=== PATIENT | male | born 1950 | race Caucasian/White ===

== ENCOUNTER 2020-01-26 11:36 | Observation (INO) | payer MEDICARE, SELFPAY ==
[2020-01-26 11:45] VITALS: BP 132/79; PULSE 101; RESP 18; TEMP 37.1; O2SAT 98
--- NOTE | 2020-01-26 12:11 | ED.GENADULT ---
HPI - General Adult General Chief complaint: Wound/Laceration <TAWNYA Jha Last Filed: 01/26/20 13:21> Stated complaint: FINGER INFECTION <TAWNYA Jha Last Filed: 01/26/20 13:21> Time Seen by Provider: 01/26/20 11:59 <TAWNYA Jha Last Filed: 01/26/20 13:21> Source: patient <TAWNYA Jha Last Filed: 01/26/20 13:21> Mode of arrival: ambulatory <TAWNYA Jha Last Filed: 01/26/20 13:21> Limitations: no limitations <TAWNYA Jha Last Filed: 01/26/20 13:21> History of Present Illness HPI narrative: Patient is a 69-year-old male who presents to emergency department for evaluation of swelling and pain involving the right middle finger patient cut the dorsal surface of the finger with a metal can 3 days ago and now the digit has become progressively more swollen draining purulent drainage with redness extending up into the hand. Patient notes aching pain worse with activity and movement. Patient notes his tetanus to be up-to-date patient presents per private vehicle has not been seen for this complaint nor is he taken anything for his symptoms <TAWNYA Jha Last Filed: 01/26/20 13:21> Related Data Home medications: Home Medications Medication Instructions Recorded Confirmed tamsulosin 0.4 mg capsule 0.4 mg PO DAILY 09/18/19 01/26/20 trazodone 300 mg PO HS 01/26/20 01/26/20 <TAWNYA Jha Last Filed: 01/26/20 13:21> Allergies/adverse reactions: Allergies Allergy/AdvReac Type Severity Reaction Status Date / Time No Known Allergies Allergy Mild Unverified 05/06/18 10:53 <TAWNYA Jha Last Filed: 01/26/20 13:21> Review of Systems Review of Systems: All systems reviewed & are unremarkable except as noted in HPI and below <TAWNYA Jha Last Filed: 01/26/20 13:21> [facility] Past Medical History Medical History: Medical History (Updated 01/26/20 @ 16:08 by Nikki Tejeda PA-C) Anxiety and depression Asbestosis Benign prostatic hyperplasia Colon polyps (~04/2018) Extrapyramidal dysarthria Hyperlipidemia Knee pain, chronic Osteoarthritis Paroxysmal atrial fibrillation (~04/2018) Type 2 diabetes mellitus <Lawrence Faye PA-C - Last Filed: 01/26/20 13:21> Surgical History Surgical History: Surgical History (Updated 01/26/20 @ 15:53 by Nikki Tejeda PA-C) History of lung surgery History of surgery on right wrist <Lawrence Faye PA-C - Last Filed: 01/26/20 13:21> Family History Family History: Family History (Updated 01/26/20 @ 15:54 by Nikki Tejeda PA-C) Mother Depression Other Diabetes mellitus Hypertension <Lawrence Faye PA-C - Last Filed: 01/26/20 13:21> Social History Social History: Social History (Updated 01/26/20 @ 15:55 by Nikki Tejeda PA-C) Social History: The patient is and lives in [place] with his . He is retired from [employer]. He has a 25 pack year smoking history and quit 1995. He denies alcohol and drug abuse. He designates his , Iris, as his surrogate decision maker and he wishes to be a full code Smoking packs per day: 1 Smoking cigarettes per day: 20.0 Years smoked: 25 Smoking pack-years: 25.00 Substance use: never Spiritual care concerns: No <Lawrence Faye PA-C - Last Filed: 01/26/20 13:21> Exam Narrative: Exam Narrative: GENERAL: Well-appearing, well-nourished, and in no acute distress. HEAD: Normocephalic, atraumatic. EYES: PERRLA and EOMI. ENT: Nares clear, no rhinorrhea or epistaxis. Mucous membranes moist. EXTREMITIES: Normal range of motion. No edema. SKIN: Warm, dry, no rash. Circumferential swelling and tenderness of the right ring finger with laceration over the PIP joint with tenderness to palpation and erythema with the swelling extending up into the dorsal surface of the right hand NEUR
[2020-01-26 12:38] LABS: Basophils Percent Auto 1.8 % (0.2-1.2); Eosinophils Absolute Auto 0.1 K/mm3 (0-0.3); Eosinophils Percent Auto 6.5 % (0-4.4); Hematocrit 34.6 % (42.0-52.0); Hemoglobin 12.3 g/dL (14.0-18.0); Immature Granulocyte Absolute 0.01 K/mm3 (0.00-0.031); Immature Granulocyte Percent A 0.6 % (0-0.5); Lymphocytes Percent Auto 35.7 % (18.3-44.2); Mean Corpuscular HGB Conc 35.5 g/dl (32-36); Mean Corpuscular Hemoglobin 34.6 pg (26-34); Mean Corpuscular Volume 97.5 fl (80-100); Mean Platelet Volume 9.8 fl (7.4-10.4); Monocytes Absolute Auto 0.5 K/mm3 (0.1-0.6); Monocytes Percent Auto 29.8 % (2.6-8.5); Neutrophils Absolute Auto 0.4 K/mm3 (1.3-6.7); Neutrophils Percent Auto 25.6 % (45.5-73.1); Platelet Count Result 184 k/mm3 (150-375); Red Blood Count 3.55 M/mm3 (4.6-6.20); Red Cell Distribution Width 12.5 % (11.5-14.5)
[2020-01-26 12:40] LABS: White Blood Count 1.7 K/mm3 (4.5-10.0)
[2020-01-26] MEDS: ceFAZolin 2 GM/D5W 50 ML 2 GM/50 ML BAG IVPB (12:44)
[2020-01-26] MEDS: SODIUM CHLORIDE 0.9% IV 1,000 ML 999 ML IV CONT (12:45)
[2020-01-26 12:50] LABS: Alanine Aminotransferase 12 U/L (4-50); Albumin Level 4.4 g/dL (3.5-5.1); Alkaline Phosphatase 75 U/L (38-126); Aspartate Amino Transferase 21 U/L (17-59); Bilirubin,Total 1.5 mg/dL (0.2-1.3); Blood Urea Nitrogen 12 mg/dL (9-20); Calcium 9.5 mg/dL (8.4-10.2); Carbon Dioxide 24 mmol/L (22-30); Chloride 101 mmol/L (98-107); Estimated CRCL calculation 63 ml/min; Estimated Glomerular Filt Rate 60; Glucose 207 mg/dL (75-110); Potassium 4.1 mmol/L (3.4-5.0); Sodium 133 mmol/L (137-145)
[2020-01-26 13:28] VITALS: BP 142/66; PULSE 88; RESP 16; O2SAT 98
[2020-01-26 15:00] VITALS: BP 133/81; PULSE 72; RESP 20; TEMP 36.8; O2SAT 100
[2020-01-26] MEDS: LACTATED RINGERS 1,000 ML 125 ML IV CONT (15:39)
--- NOTE | 2020-01-26 15:45 | PM.IMHP ---
H&P: HPI History of Present Illness Chief complaint: Right 3rd finger wound. Narrative: Peña Palmer is a 69-year-old male with type 2 diabetes mellitus, dyslipidemia, and paroxysmal atrial fibrillation on long-term anticoagulation who presented to the emergency department earlier today for evaluation of a right 3rd finger wound. Three days ago he cut his right 3rd finger on a freshly opened can of cat food. The wound was pretty shallow, and he cleaned it right away with soap and water and also applied peroxide and Neosporin. Over the past couple of days it has become progressively more edematous and erythematous, and it is now traveling up the dorsum of the right hand. This morning, the wound began draining yellowish fluid and thus he came in for evaluation. He does have a throbbing, aching discomfort in the finger, and it is worse with bending. He gives no significant alleviating factors. To this point he has been taking Tylenol for the discomfort without a whole lot of benefit. He has not had fever, chills, or sweats. He denies paresthesias, skin color, and temperature changes of that finger. He has not had nausea or vomiting. No history of MRSA. He is up-to-date on tetanus. Review of Systems Review of Systems: Narrative: Twelve systems were reviewed with pertinent positives and negatives as per HPI. No recent cold or flu symptoms. Denies recent travel and sick contacts. No cough or shortness of breath. He tells me that he sleeps poorly and is frequently tired throughout the day, but he blames that on getting up several times at night to urinate. He does have a history of BPH, but denies having any significant symptoms related to such. In fact, he thinks he urinates at night as he tends to drink a lot of fluids before bedtime. He does snore but denies PND and his has never noticed any apneic episodes. He denies falling asleep at in opportune times. He rarely has fleeting fluttering or discomfort in his left anterior chest that he believes is due to atrial fibrillation. His weight has remained stable, in fact he is maybe gained a few pounds. He is now back on metformin after he was previously able to control his diabetes with diet. It is also noted that his white blood cell count has been low for several years with neutropenia, but he has never been told of such. He has no known history of hematologic malignancy and denies easy bruising and bleeding. He denies lymphadenopathy. Except as documented, all other systems were reviewed and are negative. [facility] Past Medical History Medical History (Updated 01/26/20 @ 16:08 by Nikki Tejeda PA-C) Anxiety and depression Asbestosis Benign prostatic hyperplasia Colon polyps (~04/2018) Extrapyramidal dysarthria Hyperlipidemia Knee pain, chronic Osteoarthritis Paroxysmal atrial fibrillation (~04/2018) Type 2 diabetes mellitus Surgical History Surgical History (Updated 01/26/20 @ 19:44 by Nikki Tejeda PA-C) History of right knee joint replacement History of surgery on right wrist Family History Family History (Updated 01/26/20 @ 15:54 by Nikki Tejeda PA-C) Mother Depression Other Diabetes mellitus Hypertension Social History Social History (Updated 01/26/20 @ 15:55 by Nikki Tejeda PA-C) Social History: The patient is and lives in [place] with his . He is retired from [employer]. He has a 25 pack year smoking history and quit 1995. He denies alcohol and drug abuse. He designates his , Iris, as his surrogate decision maker and he wishes to be a full code Smoking packs per day: 1 Smoking cigarettes per day: 20.0 Years smoked: 25 Smoking pack-years: 25.00 Substance use: never Spiritual care concerns: No Meds Home Medications and Allergies Home Medications Medication Instructions Recorded Confirmed Type paroxetine HCl 20 mg tablet 20 mg PO DAILY #30 tablet 08/31/19 01/26/20 Rx atorvas
--- NOTE | 2020-01-26 15:51 | ADMGEN ---
This patient, Peña Palmer, was admitted to Medical Room 258-. Patient/family oriented to hospital policies and general routines including ID bracelet, bed and alarms, visiting hours, pain management, procedures, bathroom and other care routines, personal items, smoking policy, room service/diet, and visiting hours. Valuables list has been completed. Information on how to activate the Rapid Response Team has been discussed. Patient/Family are encouraged to report perceived risks to care and to ask questions if they do not understand what they are told or what they should do.
[2020-01-26 16:08] VITALS: BMI 34.4
[2020-01-26 16:46] LABS: Glucose Point of Care 190 (65-105)
--- NOTE | 2020-01-26 17:44 | WPDCN ---
HPI Data of Consult Date/Time: 01/26/20 17:44 Requesting Physician: Skinny Aguila MD Primary Care Provider: Barrera Tamayo DO Consult Narrative Narrative: Peña Palmer is a 69 year old male type 2 diabetic with PAF and history of lung surgery who presents on post injury day 4 with an infected right middle finger. He cut his finger over the dorsum of the proximal interphalangeal joint when he was wiping out food from a freshly opened cat food can. This would necessarily have been a shallow wound. It is coincidentally noted on his admission CBC that he is markedly leukopenic and has abnormal white cell indices. I examined him with the hospitalist. The laceration is approximately 1 cm in length. This had been opened and irrigated by the ER physician and pus had been noted.. The finger is locally red in the area of the dorsal proximal interphalangeal joint. Extension is intact, flexion causes pain. He has no signs of flexor septic tenosynovitis. He will be started on a couple of antibiotics in view of his diabetes and leukopenia. At this point I see no reason for surgical intervention. I would recommend elevation of his hand however. I will check in on him tomorrow and as long as he is here. It can be seen that he has had low white count on prior tests going back a number of years. Communication with his primary physician may be warranted regarding this. [facility] Past Medical History Medical History (Updated 01/26/20 @ 16:08 by Nikki Tejeda PA-C) Anxiety and depression Asbestosis Benign prostatic hyperplasia Colon polyps (~04/2018) Extrapyramidal dysarthria Hyperlipidemia Knee pain, chronic Osteoarthritis Paroxysmal atrial fibrillation (~04/2018) Type 2 diabetes mellitus Surgical History Surgical History (Updated 01/26/20 @ 15:53 by Nikki Tejeda PA-C) History of lung surgery History of surgery on right wrist Family History Family History (Updated 01/26/20 @ 15:54 by Nikki Tejeda PA-C) Mother Depression Other Diabetes mellitus Hypertension Social History Social History (Updated 01/26/20 @ 15:55 by Nikki Tejeda PA-C) Social History: The patient is and lives in [place] with his . He is retired from [employer]. He has a 25 pack year smoking history and quit 1995. He denies alcohol and drug abuse. He designates his , Iris, as his surrogate decision maker and he wishes to be a full code Smoking packs per day: 1 Smoking cigarettes per day: 20.0 Years smoked: 25 Smoking pack-years: 25.00 Substance use: never Spiritual care concerns: No Meds Home Medications and Allergies Home Medications Medication Instructions Recorded Confirmed Type paroxetine HCl 20 mg tablet 20 mg PO DAILY #30 tablet 08/31/19 01/26/20 Rx atorvastatin 20 mg tablet 20 mg PO DAILY #90 tablet 09/06/19 01/26/20 Rx tamsulosin 0.4 mg capsule 0.4 mg PO DAILY 09/18/19 01/26/20 History metformin 500 mg tablet,extended 500 mg PO DAILY #90 tablet 12/13/19 01/26/20 Rx release 24 hr rivaroxaban 20 mg tablet 20 mg PO DAILY #30 tablet 01/21/20 01/26/20 Rx trazodone 300 mg PO HS 01/26/20 01/26/20 History Allergies Allergy/AdvReac Type Severity Reaction Status Date / Time No Known Allergies Allergy Mild Unverified 05/06/18 10:53 Vital Signs Vital Signs - 24 hr 01/26/20 11:45 01/26/20 13:28 01/26/20 15:00 Temperature 37.1 C 36.8 C Pulse Rate 101 H 88 72 Respiratory Rate 18 16 20 Blood Pressure 132/79 142/66 H 133/81 Pulse Oximetry 98 98 100 Results Labs CBC & Chem 7: 01/26/20 12:25 01/26/20 12:25 Labs: Short CBC 01/26/20 Range/Units 12:25 WBC 1.7 L* (4.5-10.0) K/mm3 Hgb 12.3 L (14.0-18.0) g/dL Hct 34.6 L (42.0-52.0) % Plt Count 184 (150-375) k/mm3 BMP 01/26/20 12:25 Sodium 133 L Potassium 4.1 Chloride 101 Carbon Dioxide 24 BUN 12 Creatinine 1.20 Glucose 207 H
[2020-01-26] MEDS: RIVAROXABAN 20 MG TABLET PO (20:56)
[2020-01-26 21:31] VITALS: BP 133/86; PULSE 74; RESP 18; TEMP 36.3; O2SAT 98
[2020-01-27 00:07] LABS: Glucose Point of Care 151 (65-105)
[2020-01-27] MEDS: PAROXETINE 20 MG TABLET PO ×2 (00:46→20:47)
[2020-01-27 02:00] VITALS: BP 116/55; PULSE 78; RESP 14; TEMP 36.7; O2SAT 100
[2020-01-27 06:00] VITALS: BP 104/64; PULSE 83; RESP 14; TEMP 36.4; O2SAT 99
[2020-01-27 06:00] LABS: Basophils Percent Auto 2.3 % (0.2-1.2); Eosinophils Absolute Auto 0.2 K/mm3 (0-0.3); Eosinophils Percent Auto 13.7 % (0-4.4); Hematocrit 30.6 % (42.0-52.0); Hemoglobin 10.7 g/dL (14.0-18.0); Lymphocytes Absolute Auto 0.56 K/mm3 (0.9-3.2); Lymphocytes Percent Auto 42.7 % (18.3-44.2); Mean Corpuscular Hemoglobin 33.9 pg (26-34); Mean Corpuscular Volume 96.8 fl (80-100); Mean Platelet Volume 10.1 fl (7.4-10.4); Monocytes Absolute Auto 0.4 K/mm3 (0.1-0.6); Monocytes Percent Auto 32.1 % (2.6-8.5); Neutrophils Absolute Auto 0.1 K/mm3 (1.3-6.7); Neutrophils Percent Auto 9.2 % (45.5-73.1); Platelet Count Result 149 k/mm3 (150-375); Red Blood Count 3.16 M/mm3 (4.6-6.20); Red Cell Distribution Width 12.4 % (11.5-14.5)
[2020-01-27 06:10] LABS: Hemoglobin A1C 4.8 % (<5.7)
[2020-01-27 06:12] LABS: Potassium 3.9 mmol/L (3.4-5.0)
[2020-01-27 06:16] LABS: White Blood Count 1.3 K/mm3 (4.5-10.0)
[2020-01-27 06:26] LABS: Blood Urea Nitrogen 13 mg/dL (9-20); Calcium 8.7 mg/dL (8.4-10.2); Carbon Dioxide 26 mmol/L (22-30); Chloride 105 mmol/L (98-107); Estimated CRCL calculation 64 ml/min; Estimated Glomerular Filt Rate 60; Glucose 156 mg/dL (75-110); Sodium 137 mmol/L (137-145)
[2020-01-27] MEDS: ATORVASTATIN 20 MG TABLET PO (08:29)
[2020-01-27] MEDS: TAMSULOSIN HCL 0.4 MG CAPSULE PO (08:29)
[2020-01-27 08:36] LABS: Glucose Point of Care 161 (65-105)
[2020-01-27 10:00] VITALS: BP 119/68; PULSE 70; RESP 20; TEMP 36.1; O2SAT 99
--- NOTE | 2020-01-27 11:22 | WPDPN ---
Progress Note: A&P Additional Plan No worsening of finger infection. Seems less tender. No apparent pus. WBC remains a concern. Will order topical ointment to be applied with a Band aid. Exam Narrative: Exam Narrative: Area of dorsal PIP joint of right middle finger remains erythematous. Able to make a tightly clenched fist without significant pain. Tolerates local exam. Small superficial blister ruptured, contained clear fluid. No signs of flexor tendon infection. WBC 1.3 with severe neutropenia and other altered indices. Dr Epps has been aware of this trend over recent years, but pt not aware of a dignosis. Objective Data Vital Signs Vital Signs: Vital Signs - 24 hr 01/26/20 11:45 01/26/20 13:28 01/26/20 15:00 Temperature 37.1 C 36.8 C Pulse Rate 101 H 88 72 Respiratory Rate 18 16 20 Blood Pressure 132/79 142/66 H 133/81 Pulse Oximetry 98 98 100 01/26/20 21:31 01/27/20 02:00 01/27/20 06:00 Temperature 36.3 C L 36.7 C 36.4 C Pulse Rate 74 78 83 Respiratory Rate 18 14 14 Blood Pressure 133/86 116/55 L 104/64 Pulse Oximetry 98 100 99 01/27/20 10:00 Temperature 36.1 C L Pulse Rate 70 Respiratory Rate 20 Blood Pressure 119/68 Pulse Oximetry 99 Intake/Output Intake/Output: Intake & Output 01/24/20 01/25/20 01/26/20 01/27/20 23:59 23:59 23:59 23:59 Intake Total 1989 2239 Output Total 2699 Balance 1989 - Meds/Results Medications: Active Medications Generic Name Dose Route Start Last Admin Trade Name Freq PRN Reason Stop Dose Admin Acetaminophen 650 mg 01/26/20 19:34 Tylenol Tablet PO Q6H PRN Mild Pain (1-3) or Fever Hydrocodone Bitart/Acetaminophen 1 tab 01/26/20 19:34 01/27/20 05:41 [place] [employer] 5-325 Mg PO 1 tab Q6H PRN Administration Pain Rated 4-6 Atorvastatin Calcium 20 mg 01/27/20 09:00 01/27/20 08:29 Lipitor PO 20 mg DAILY LEONID Administration Dextrose 12.5 gm 01/26/20 19:54 Dextrose 50% Syringe IV PUSH PRN PRN Hypoglycemia Protocol Glucagon 1 mg 01/26/20 19:54 Glucagon For Inj IM PRN PRN Hypoglycemia Protocol Glucose 15 gm 01/26/20 19:54 Glutose 15 PO PRN PRN Hypoglycemia Protocol Imipenem/Cilastatin Sodium 500 mg in 100 mls @ 300 mls/hr 01/27/20 00:00 01/27/20 08:32 Primaxin 500 Mg/D5w 100 Ml IVPB Infused Q6HR LEONID Infusion Dextrose 1,000 mls @ 100 mls/hr 01/26/20 19:54 Dextrose 5% 1,000 Ml IVPB PRN PRN Hypoglycemia Protocol Vancomycin HCl 1,500 mg in 500 mls @ 333.333 mls/hr 01/26/20 21:00 01/27/20 08:29 Vancomycin 1,500 Mg/D5w 500 Ml IVPB 333 mls/hr Q12H LEONID Administration Insulin Aspart 2 - 5 units 01/26/20 17:00 01/27/20 08:29 Novolog SUB-Q Not Given TIDWM LEONID Protocol Ondansetron HCl 4 mg 01/26/20 13:21 Zofran Inj IV PUSH Q4H PRN Nausea Paroxetine HCl 20 mg 01/27/20 00:30 01/27/20 00:46 Paxil PO 20 mg HS LEONID Administration Rivaroxaban 20 mg 01/26/20 18:00 01/26/20 20:56 Xarelto PO 20 mg QPM LEONID Administration Tamsulosin HCl 0.4 mg 01/27/20 09:00 01/27/20 08:29 Flomax PO 0.4 mg DAILY LEONID Administration Trazodone HCl 300 mg 01/27/20 00:33 Desyrel PO HS PRN Sleep Labs Labs: Laboratory Results - last 24 hr 01/26/20 01/26/20 01/26/20 12:25 12:25 16:37 WBC 1.7 L* RBC 3.55 L Hgb 12.3 L Hct 34.6 L MCV 97.5 MCH 34.6 H MCHC 35.5 RDW 12.5 Plt Count 184 MPV 9.8 Immature Gran % (Auto) 0.6 H Neut % (Auto) 25.6 L Lymph % (Auto) 35.7 Lamb % (Auto) 29.8 H Eos % (Auto) 6.5 H Baso % (Auto) 1.8 H Lymph # (Auto) 0.60 L Lamb # (Auto) 0.5 Eos # (Auto) 0.1 Baso # (Auto) 0.0 Abs Immat Gran (auto) 0.01 Absolute Neuts (auto) 0.4 L Absolute Nucleated RBC 0.0 Nucleated RBC % 0.0 Sodium 133 L Potassium 4.1 Chloride 101 Carbon Dioxide 24 BUN
[2020-01-27 11:49] LABS: Glucose Point of Care 162 (65-105)
--- NOTE | 2020-01-27 13:38 | PM.IMPN ---
Progress Note: A&P Assessment and Plan (1) Cellulitis of right middle finger: Code(s): L03.011 - Cellulitis of right finger Status: Acute Assessment and Plan: He has been started on vancomycin and imipenem given his diabetes and neutropenia. Wound culture has been obtained and is pending. I have encouraged him to elevate the affected extremity. Given the location of the wound, Dr. Min was consulted and his input is appreciated. 01/27/20 13:38 patient is 69-year-old male with no significant past medical history while wiping can of cat food he injured his right middle finger middle phalanx and PIP on dorsum expect of the finger 3 days ago, presented emergency department with a complaint redness swelling and pain with minimal drainage, patient is able to flex and extend at MCP and PIP patient was seen by plastic surgeon does not suspect serious infection patient is being treated with vancomycin imipenem,will continue, incidentally patient is found to have leukopenia, he states that he had a surgery and lab and September of 2019 and that time he was not told about the leukopenia nor he has any history, we have ordered labs from [facility], we have consulted program lead for further recommendation (2) Abnormal complete blood count: Code(s): R79.89 - Other specified abnormal findings of blood chemistry Status: Acute Assessment and Plan: On review of previous labs, he has had mild neutropenia for couple of years. Today his white blood cell count is 1700 with a somewhat unusual automated differential including 25.6% neutrophils, 35.7% lymphocytes, 29.8% monocytes, 1.8% basophils, and 6.5% eosinophils. Concerning for underlying myelodysplasia, thus will consult hematology for possible bone marrow biopsy. He gives no history to suggest underlying illness and it is unlikely that this is drug related. (3) Type 2 diabetes mellitus: Code(s): E11.9 - Type 2 diabetes mellitus without complications Status: Acute Assessment and Plan: Diet-controlled for many years however he has gained a bit of weight and is now back on metformin. Check hemoglobin A1c and initiate sliding scale insulin, Accu-Cheks, and hypoglycemic protocol. Patient A1c is 4.8 seems diabetes, well controlled (4) Paroxysmal atrial fibrillation: Onset Date: ~04/2018 Code(s): I48.0 - Paroxysmal atrial fibrillation Status: Acute Assessment and Plan: He is in a sinus rhythm and not on rate-controlling medication. Continue Xarelto. Subjective Date/time seen: 01/27/20 13:38 patient is 69-year-old male with no significant past medical history while wiping can of cat food he injured his right middle finger middle phalanx and PIP on dorsum expect of the finger 3 days ago, presented emergency department with a complaint redness swelling and pain with minimal drainage, patient is able to flex and extend at MCP and PIP patient was seen by plastic surgeon does not suspect serious infection patient is being treated with vancomycin imipenem,will continue, incidentally patient is found to have leukopenia, he states that he had a surgery and lab and September of 2019 and that time he was not told about the leukopenia nor he has any history, we have ordered labs from [facility], we have consulted program lead for further recommendation Review of Systems Review of Systems: All systems reviewed & are unremarkable except as noted in HPI and below Exam Const: General: comfortable and no acute distress HENMT: General nose exam: Normal nares present Mouth: Yes moist mucous membranes Eyes: General: appearance normal, both eyes and all related structures Sclera: sclerae normal Neck:
[2020-01-27 14:00] VITALS: BP 117/68; PULSE 78; RESP 20; TEMP 36.6; O2SAT 99
[2020-01-27] MEDS: BISMUTH SUBSALICYLATE 262 MG CHEWABLE TABLET 524 MG PO (14:26)
[2020-01-27] MEDS: BACITRACIN OINTMENT 15 GM TUBE 1 APPLIC TOPICAL (14:27)
[2020-01-27 16:48] LABS: Glucose Point of Care 131 (65-105)
[2020-01-27] MEDS: RIVAROXABAN 20 MG TABLET PO (17:19)
[2020-01-27 18:00] VITALS: BP 136/71; PULSE 79; RESP 16; TEMP 36.7; O2SAT 100
[2020-01-27 22:00] VITALS: BP 130/73; PULSE 79; RESP 20; TEMP 36.4; O2SAT 98
[2020-01-28 00:45] LABS: Glucose Point of Care 232 (65-105)
[2020-01-28 02:00] VITALS: BP 114/60; PULSE 86; RESP 18; TEMP 36.3; O2SAT 99
[2020-01-28 06:00] VITALS: BP 122/71; PULSE 82; RESP 18; TEMP 36.6; O2SAT 98
[2020-01-28 08:16] LABS: Glucose Point of Care 186 (65-105)
[2020-01-28 08:34] LABS: Basophils Percent Auto 2.5 % (0.2-1.2); Eosinophils Absolute Auto 0.2 K/mm3 (0-0.3); Eosinophils Percent Auto 15.7 % (0-4.4); Hematocrit 32.3 % (42.0-52.0); Hemoglobin 11.3 g/dL (14.0-18.0); Lymphocytes Absolute Auto 0.48 K/mm3 (0.9-3.2); Lymphocytes Percent Auto 39.7 % (18.3-44.2); Mean Corpuscular Hemoglobin 34.6 pg (26-34); Mean Corpuscular Volume 98.8 fl (80-100); Mean Platelet Volume 9.9 fl (7.4-10.4); Monocytes Absolute Auto 0.4 K/mm3 (0.1-0.6); Monocytes Percent Auto 30.6 % (2.6-8.5); Neutrophils Absolute Auto 0.1 K/mm3 (1.3-6.7); Neutrophils Percent Auto 11.5 % (45.5-73.1); Platelet Count Result 177 k/mm3 (150-375); Red Blood Count 3.27 M/mm3 (4.6-6.20); Red Cell Distribution Width 12.4 % (11.5-14.5)
[2020-01-28 08:43] LABS: White Blood Count 1.2 K/mm3 (4.5-10.0)
[2020-01-28 08:50] LABS: Alanine Aminotransferase 13 U/L (4-50); Albumin Level 3.9 g/dL (3.5-5.1); Alkaline Phosphatase 67 U/L (38-126); Aspartate Amino Transferase 20 U/L (17-59); Bilirubin,Total 1.2 mg/dL (0.2-1.3); Blood Urea Nitrogen 13 mg/dL (9-20); Calcium 9.3 mg/dL (8.4-10.2); Carbon Dioxide 29 mmol/L (22-30); Chloride 101 mmol/L (98-107); Estimated CRCL calculation 69 ml/min; Estimated Glomerular Filt Rate > 60; Glucose 196 mg/dL (75-110); Potassium 4.1 mmol/L (3.4-5.0); Sodium 135 mmol/L (137-145)
[2020-01-28 09:15] LABS: Vancomycin Trough 12.6 ug/mL (10.0-20.0)
[2020-01-28 10:00] VITALS: BP 143/80; PULSE 77; RESP 16; TEMP 36.8; O2SAT 100
[2020-01-28] MEDS: BACITRACIN OINTMENT 15 GM TUBE 1 APPLIC TOPICAL (10:00)
[2020-01-28] MEDS: ATORVASTATIN 20 MG TABLET PO (10:00)
[2020-01-28] MEDS: TAMSULOSIN HCL 0.4 MG CAPSULE PO (10:00)
[2020-01-28 11:45] LABS: Glucose Point of Care 195 (65-105)
[2020-01-28 14:00] VITALS: BP 130/80; PULSE 70; RESP 16; TEMP 36.3; O2SAT 100
--- NOTE | 2020-01-28 15:01 | PM.DS ---
DS: Diagnosis Admitting Diagnosis Admitting Diagnosis: Cellulitis of right finger Discharge Diagnosis (1) Cellulitis of right middle finger: Code(s): L03.011 - Cellulitis of right finger Status: Acute Assessment and Plan: He has been started on vancomycin and imipenem given his diabetes and neutropenia. Wound culture has been obtained and is pending. I have encouraged him to elevate the affected extremity. Given the location of the wound, Dr. Min was consulted and his input is appreciated. 01/27/20 13:38 patient is 69-year-old male with no significant past medical history while wiping can of cat food he injured his right middle finger middle phalanx and PIP on dorsum expect of the finger 3 days ago, presented emergency department with a complaint redness swelling and pain with minimal drainage, patient is able to flex and extend at MCP and PIP patient was seen by plastic surgeon does not suspect serious infection patient is being treated with vancomycin imipenem,will continue, incidentally patient is found to have leukopenia, he states that he had a surgery and lab and September of 2019 and that time he was not told about the leukopenia nor he has any history, we have ordered labs from [facility], we have consulted director trust for further recommendation (2) Abnormal complete blood count: Code(s): R79.89 - Other specified abnormal findings of blood chemistry Status: Acute Assessment and Plan: On review of previous labs, he has had mild neutropenia for couple of years. Today his white blood cell count is 1700 with a somewhat unusual automated differential including 25.6% neutrophils, 35.7% lymphocytes, 29.8% monocytes, 1.8% basophils, and 6.5% eosinophils. Concerning for underlying myelodysplasia, thus will consult hematology for possible bone marrow biopsy. He gives no history to suggest underlying illness and it is unlikely that this is drug related. (3) Type 2 diabetes mellitus: Code(s): E11.9 - Type 2 diabetes mellitus without complications Status: Acute Assessment and Plan: Diet-controlled for many years however he has gained a bit of weight and is now back on metformin. Check hemoglobin A1c and initiate sliding scale insulin, Accu-Cheks, and hypoglycemic protocol. Patient A1c is 4.8 seems diabetes, well controlled (4) Paroxysmal atrial fibrillation: Onset Date: ~04/2018 Code(s): I48.0 - Paroxysmal atrial fibrillation Status: Acute Assessment and Plan: He is in a sinus rhythm and not on rate-controlling medication. Continue Xarelto. DS: Summary Hospital Course Reason for hospitalization: Peña Palmer is a 69-year-old male with type 2 diabetes mellitus, dyslipidemia, and paroxysmal atrial fibrillation on long-term anticoagulation who presented to the emergency department earlier today for evaluation of a right 3rd finger wound. Three days ago he cut his right 3rd finger on a freshly opened can of cat food. The wound was pretty shallow, and he cleaned it right away with soap and water and also applied peroxide and Neosporin. Over the past couple of days it has become progressively more edematous and erythematous, and it is now traveling up the dorsum of the right hand. This morning, the wound began draining yellowish fluid and thus he came in for evaluation. He does have a throbbing, aching discomfort in the finger, and it is worse with bending. He gives no significant alleviating factors. To this point he has been taking Tylenol for the discomfort without a whole lot of benefit. He has not had fever, chills, or sweats. He denies paresthesias, skin color, and temperature changes of that finger. He has not had nausea or vomit
[2020-01-28 16:55] LABS: Iron 86 ug/dL (49-181)
--- NOTE | 2020-01-28 16:56 | CONS_ITS ---
This report was moved to the correct visit, [id number] on 02/18/2020. Original report was signed by Dr. Kirstin Perdomo on 01/28/2020 at 0845. REASON FOR CONSULTATION: Neutropenia. HISTORY OF PRESENTING ILLNESS: This is a pleasant 69-year-old male, who has a history of type 2 diabetes and atrial fibrillation, came into the hospital with infection of the right third finger. According to the patient, he cut his right third finger while trying to open the dog canned food container. He denies any fevers and chills, but his right third finger became swollen, red and quite painful. He denies any previous history of leukopenia. He denies any night sweats, fevers, chills, and weight loss. He denies any hot flashes and night sweats. Denies any new lumps, bumps and lymphadenopathy. He was admitted to the hospital and labs were done that showed WBC count of 1.7, which dropped further down to 1.2. He was also started on antibiotic treatment with Primaxin with improvement in the swelling and redness in the right third finger. REVIEW OF SYSTEMS: 12-point review of system was reviewed and as per HPI, otherwise negative. PAST MEDICAL HISTORY: Anxiety, depression, history of asbestosis, benign prostatic hypertrophy, atrial fibrillation, type 2 diabetes, osteoarthritis, hyperlipidemia. PAST SURGICAL HISTORY: Right knee replacement, history of right wrist surgery. FAMILY HISTORY: Noncontributory for any leukemia and lymphoma. SOCIAL HISTORY: The patient is . He is retired from [employer]. He has a 25-pack history of smoking, quit in 1995. Denies any alcohol and drug use. HOME MEDICATIONS: Reviewed. ALLERGIES: REVIEWED. PHYSICAL EXAMINATION: GENERAL: This patient is a well-developed, well-nourished male, no apparent distress, alert and oriented. VITAL SIGNS: Per nursing note. HEENT: Normocephalic, atraumatic. Clear oropharynx. LUNGS: Clear to auscultation bilaterally. CARDIOVASCULAR: Regular rate and rhythm. No murmurs. ABDOMEN: Soft, nontender, nondistended. Bowel sounds are positive in all 4 quadrants. No hepatosplenomegaly. EXTREMITIES: No clubbing, cyanosis, edema. Right third finger showed healing wound without any signs of active infection. LABORATORY DATA: WBC 1.2, hemoglobin 11.3, MCV 98.8, platelet 177,000, neutrophils 11.5%, lymphocytes 39%, monocytes 30%, eosinophils 15.7%, basophils 2.5%. ASSESSMENT AND PLAN: Leukopenia with neutropenia. This is a 69-year-old male who has a history of type 2 diabetes as well as atrial fibrillation. He came into the hospital with injury to the right third finger, status post cut due to the can that he was trying to open. His finger became quite sore along with swelling and the redness. He is feeling better after the antibiotic therapy here and wanted to go home today. I have reviewed the labs and discussed the differential diagnosis with the patient. I have informed him the possibility of neutropenia could be infection related versus drug-induced neutropenia. Other possibilities include autoimmune neutropenia and nutritional deficiencies along with possibility of liver and spleen disorders. I have also discussed the possibility of bone marrow disorder given the abnormal differential that he has. I have ordered the initial workup that included CBC with differential, ROOSEVELT, iron studies, vitamin B12 level, and abdominal ultrasound. Based on the initial finding, he may need a bone marrow aspiration and biopsy. I have provided him my office information where he will come back to see me in 1 week. I have answered all the questions to the patient's satisfaction. KIRSTIN PERDOMO M.D. 1
[2020-01-28 17:05] LABS: Percent Iron Saturation 41 % (20-50)
== END 2020-01-28 16:01 | disposition home or self-care (01) ==
LOC: ANHED 13:21 → ANH2MED 16:13
PROVIDERS: Emergency Medicine Emergency Medical Services; Internal Medicine Hematology & Oncology; Physician Assistant; Admitting Provider Internal Medicine; Emergency Provider Emergency Medicine; PCP Internal Medicine; Visit Provider Family Medicine
DX: L03.011 Cellulitis of right finger (principal); S61.212A Laceration without foreign body of right middle finger without damage to nail, initial encounter; W26.8XXA Contact with other sharp object(s), not elsewhere classified, initial encounter; R79.89 Other specified abnormal findings of blood chemistry; E11.9 Type 2 diabetes mellitus without complications; I48.0 Paroxysmal atrial fibrillation; E78.5 Hyperlipidemia, unspecified; Z79.84 Long term (current) use of oral hypoglycemic drugs; Z79.899 Other long term (current) drug therapy; Z87.891 Personal history of nicotine dependence
CPT/HCPCS: 36415; 80048; 80053; 80202; 82607; 82728; 83036; 83540; 83550; 85025; 86038; 86039; 87070; 87075; 87147; 87186; 87205; 96361; 96365; 96366; 96367; 96375; 96376; 99285; A4565; A9270; G0378; J0690; J0743; J3370; J7030; J7120

== ENCOUNTER 2020-01-29 08:24 | Outpatient (CLI) | payer MEDICARE, SELFPAY ==
--- NOTE | 2020-01-28 20:35 | CONS_ITS ---
DATE OF CONSULTATION: 01/29/2020 REASON FOR CONSULTATION: Neutropenia. HISTORY OF PRESENTING ILLNESS: This is a pleasant 69-year-old male, who has a history of type 2 diabetes and atrial fibrillation, came into the hospital with infection of the right third finger. According to the patient, he cut his right third finger while trying to open the dog canned food container. He denies any fevers and chills, but his right third finger became swollen, red and quite painful. He denies any previous history of leukopenia. He denies any night sweats, fevers, chills, and weight loss. He denies any hot flashes and night sweats. Denies any new lumps, bumps and lymphadenopathy. He was admitted to the hospital and labs were done that showed WBC count of 1.7, which dropped further down to 1.2. He was also started on antibiotic treatment with Primaxin with improvement in the swelling and redness in the right third finger. REVIEW OF SYSTEMS: 12-point review of system was reviewed and as per HPI, otherwise negative. PAST MEDICAL HISTORY: Anxiety, depression, history of asbestosis, benign prostatic hypertrophy, atrial fibrillation, type 2 diabetes, osteoarthritis, hyperlipidemia. PAST SURGICAL HISTORY: Right knee replacement, history of right wrist surgery. FAMILY HISTORY: Noncontributory for any leukemia and lymphoma. SOCIAL HISTORY: The patient is . He is retired from [employer]. He has a 25-pack history of smoking, quit in 1995. Denies any alcohol and drug use. HOME MEDICATIONS: Reviewed. ALLERGIES: REVIEWED. PHYSICAL EXAMINATION: GENERAL: This patient is a well-developed, well-nourished male, no apparent distress, alert and oriented. VITAL SIGNS: Per nursing note. HEENT: Normocephalic, atraumatic. Clear oropharynx. LUNGS: Clear to auscultation bilaterally. CARDIOVASCULAR: Regular rate and rhythm. No murmurs. ABDOMEN: Soft, nontender, nondistended. Bowel sounds are positive in all 4 quadrants. No hepatosplenomegaly. EXTREMITIES: No clubbing, cyanosis, edema. Right third finger showed healing wound without any signs of active infection. LABORATORY DATA: WBC 1.2, hemoglobin 11.3, MCV 98.8, platelet 177,000, neutrophils 11.5%, lymphocytes 39%, monocytes 30%, eosinophils 15.7%, basophils 2.5%. ASSESSMENT AND PLAN: Leukopenia with neutropenia. This is a 69-year-old male who has a history of type 2 diabetes as well as atrial fibrillation. He came into the hospital with injury to the right third finger, status post cut due to the can that he was trying to open. His finger became quite sore along with swelling and the redness. He is feeling better after the antibiotic therapy here and wanted to go home today. I have reviewed the labs and discussed the differential diagnosis with the patient. I have informed him the possibility of neutropenia could be infection related versus drug-induced neutropenia. Other possibilities include autoimmune neutropenia and nutritional deficiencies along with possibility of liver and spleen disorders. I have also discussed the possibility of bone marrow disorder given the abnormal differential that he has. I have ordered the initial workup that included CBC with differential, ROOSEVELT, iron studies, vitamin B12 level, and abdominal ultrasound. Based on the initial finding, he may need a bone marrow aspiration and biopsy. I have provided him my office information where he will come back to see me in 1 week. I have answered all the questions to the patient's satisfaction. KIRSTIN WINSLOW M.D. NURSING OFFICER NURSING OFFICER D I MT: Isa
--- NOTE | ~2020-01-29 | US_ITS ---
US abdomen complete DATE: 01/29/2020 09:21 INDICATION: Abnormal blood chemistry findings TECHNIQUE: Real-time imaging of the abdomen, Doppler analysis COMPARISON: 03/14/2015 abdominal ultrasound Limited examination 05/06/2018 CT abdomen pelvis FINDINGS: No hepatic or pancreatic space-occupying mass lesion is detected. There is normal hepatoped al portal venous flow direction. There are small filling defects in the dependent aspect of the gallbladder consistent with cholelithi asis. The gallbladder wall measures up to 2.5 mm, within upper limits of normal. Negative sonographic Jackson's sign. The common bile duct measures 5 mm, within normal range. Normal caliber of the abdominal aorta. Inferior vena cava is patent. There is an approximately 2 x 2.4 cm left renal cyst. No hydronephrosis of either kidney is evident. IMPRESSION: Cholelithiasis Left renal cyst Reviewed, dictated and finalized at [facility]. Reviewed, dictated and finalized at location A.
== END 2020-01-29 08:25 | disposition home or self-care (01) ==
PROVIDERS: PCP Internal Medicine; Visit Provider Internal Medicine Hematology & Oncology
DX: R79.89 Other specified abnormal findings of blood chemistry (principal); K80.20 Calculus of gallbladder without cholecystitis without obstruction; N28.1 Cyst of kidney, acquired
CPT/HCPCS: 76700

== ENCOUNTER 2020-02-06 12:17 | Outpatient (CLI) | payer MEDICARE, SELFPAY ==
--- NOTE | ~2020-02-06 | XR_ITS ---
EXAMINATION: XR chest 2V 02/06/2020 12:30 INDICATION: Shortness of breath and weakness PROCEDURE: 2 view chest COMPARISON: Comparison to multiple prior studies sequentially, with oldest reviewed study dated 01/20. FINDINGS: The lungs are clear. The cardiomediastinal silhouette is within normal limits. There are no pleural effusions. There is no pneumothorax suspected. IMPRESSION: 1: NO ACUTE CARDIOPULMONARY DISEASE. Reviewed, dictated and finalized at location A.
== END 2020-02-06 12:18 | disposition home or self-care (01) ==
PROVIDERS: PCP Internal Medicine; Visit Provider Clinical Nurse Specialist
DX: R06.02 Shortness of breath (principal)
CPT/HCPCS: 71046

== ENCOUNTER 2020-02-13 13:48 | Outpatient (CLI) | payer MEDICARE, SELFPAY ==
--- NOTE | 2020-02-13 14:16 | ECHO_ITS ---
Patient Info Name: Peña Palmer Age: 69 years : 1950 Gender: Male Ht: 71 in Wt: 223 lbs BSA: 2.28 m2 HR: 84 bpm BP: 110 / 64 mmHg Heart Rhythm: Atrial Fibrillation Technical Quality: Good Exam Date: 02/13/2020 2:23 PM Exam Location: [facility] Patient Status: Outpatient Admit Date: 02/13/2020 Staff Ordering Physician: Amalia Perales Physiologist: Bryan Jackson RDCS, RT Attending Provider: Amalia Perales Referring Physician: Angella JOHNS; Exam Type: CA echo doppler color flow Study Info Indications R06.02 - Shortness of breath Complete two-dimensional, color flow and Doppler transthoracic echocardiogram is performed. Summary 1. Left ventricular chamber dimension is normal. 2. Ventricular septum is sigmoid shaped. 3. Left ventricular systolic function is normal, estimated at 55-60%. 4. There is mildly increased left ventricular wall thickness. 5. The left ventricular diastolic function is normal. 6. E/e' 8 is minimally elevated. 7. Global longitudinal strain is abnormal at -15.0%. 8. Probably in atrial fibrillation. 9. Left atrial chamber dimension is moderately enlarged. 10. Right atrial chamber dimension is mildly enlarged. 11. There is trace mitral valve regurgitation. 12. There is mild tricuspid valve regurgitation. 13. No pulmonary hypertension, estimated pulmonary arterial systolic pressure is 32 mmHg. 14. There is trace pulmonic regurgitation. 15. The aortic root size at the sinus of Valsalva is moderately dilated at 4.5 cm. 16. Dilated inferior vena cava with >50% collapse upon inspiration consistent with elevated right atrial pressure, 10 mmHg. Left Ventricle E/e' 8 is minimally elevated. Global longitudinal strain is abnormal at -15.0%. Ventricular septum is sigmoid shaped. Probably in atrial fibrillation. Left ventricular chamber dimension is normal. Left ventricular systolic function is normal, estimated at 55-60%. There is mildly increased left ventricular wall thickness. The left ventricular diastolic function is normal. Right Ventricle Right ventricular chamber dimension is normal. Right ventricular systolic function is normal. Left Atria Left atrial chamber dimension is moderately enlarged. Right Atria Right atrial chamber dimension is mildly enlarged. Aortic Valve The aortic valve is trileaflet. There is no aortic valve stenosis. There is no aortic valve regurgitation. Pulmonic Valve There is trace pulmonic regurgitation. Mitral Valve There is no mitral valve stenosis. There is trace mitral valve regurgitation. Tricuspid Valve There is mild tricuspid valve regurgitation. No pulmonary hypertension, estimated pulmonary arterial systolic pressure is 32 mmHg. Pericardium/Pleural There is no pericardial effusion. Inferior Vena Cava Dilated inferior vena cava with >50% collapse upon inspiration consistent with elevated right atrial pressure, 10 mmHg. Aorta The aortic root size at the sinus of Valsalva is moderately dilated at 4.5 cm. Left Ventricular Outflow Tract Name Value Normal LVOT 2D LVOT Diameter 2.1 cm LVOT Doppler
== END 2020-02-13 13:49 | disposition home or self-care (01) ==
PROVIDERS: PCP Internal Medicine; Visit Provider Clinical Nurse Specialist
DX: R06.02 Shortness of breath (principal); I51.7 Cardiomegaly
CPT/HCPCS: 93306

== ENCOUNTER 2020-02-20 09:18 | Outpatient (CLI) | payer MEDICARE, SELFPAY ==
[2020-02-20 09:31] LABS: Basophils Percent Auto 2.1 % (0.2-1.2); Eosinophils Absolute Auto 0.2 K/mm3 (0-0.3); Hematocrit 34.8 % (42.0-52.0); Hemoglobin 11.7 g/dL (14.0-18.0); Lymphocytes Absolute Auto 0.57 K/mm3 (0.9-3.2); Lymphocytes Percent Auto 39.9 % (18.3-44.2); Mean Corpuscular HGB Conc 33.6 g/dl (32-36); Mean Corpuscular Hemoglobin 33.3 pg (26-34); Mean Corpuscular Volume 99.1 fl (80-100); Mean Platelet Volume 8.6 fl (7.4-10.4); Monocytes Absolute Auto 0.4 K/mm3 (0.1-0.6); Neutrophils Absolute Auto 0.2 K/mm3 (1.3-6.7); Platelet Count Result 189 k/mm3 (150-375); Red Blood Count 3.51 M/mm3 (4.6-6.20); Red Cell Distribution Width 12.9 % (11.5-14.5)
[2020-02-20 09:32] LABS: White Blood Count 1.4 K/mm3 (4.5-10.0)
[2020-02-20 12:07] LABS: Blood Urea Nitrogen 18 mg/dL (9-20); Calcium 9.4 mg/dL (8.4-10.2); Carbon Dioxide 28 mmol/L (22-30); Chloride 102 mmol/L (98-107); Estimated Glomerular Filt Rate 60; Glucose 174 mg/dL (75-110); Potassium 4.5 mmol/L (3.4-5.0); Sodium 135 mmol/L (137-145)
== END 2020-02-20 09:19 | disposition home or self-care (01) ==
PROVIDERS: PCP Internal Medicine; Visit Provider Internal Medicine Hematology & Oncology
DX: D70.9 Neutropenia, unspecified (principal)
CPT/HCPCS: 36415; 80048; 85025

== ENCOUNTER 2021-06-30 11:32 | Outpatient (CLI) | payer MEDICARE, SELFPAY ==
--- NOTE | ~2021-06-30 | XR_ITS ---
EXAMINATION: XR chest 2V 06/30/2021 12:11 INDICATION: Syncope and collapse PROCEDURE: 2 view chest COMPARISON: 02/06/2020 FINDINGS: The lungs are clear. The cardiomediastinal silhouette is within normal limits. There are no pleural effusions. There is no pneumothorax suspected. IMPRESSION: 1: NO ACUTE CARDIOPULMONARY DISEASE. Reviewed, dictated and finalized at location B.
--- NOTE | ~2021-06-30 | CT_ITS ---
EXAMINATION: CT BRAIN W/O DATE: 06/30/2021 12:06 INDICATION: Syncope. Collapse. TECHNIQUE: Computed tomography (CT) of the head was performed without intravenous contrast. The dose- length product was 605.33 mGy-cm. The mA was adjusted according to patient size. Iterative reconstruc tion technique was employed. COMPARISON: No prior studies for comparison. FINDINGS: Normal brain parenchymal volume for age. Normal burger-white differentiation. No acute intrac ranial hemorrhage, infarction, mass or mass effect. There are scattered mild periventricular and subc ortical white matter changes, most likely related to small vessel ischemic disease (microangiopathy). No ventriculomegaly or midline shift. Midline sagittal images demonstrate a normal corpus callosum, c raniovertebral junction and sella turcica. Basilar cisterns are patent. There is mild mucosal thickening of the ethmoid sinuses. Mastoids are pneumatized. No depressed skull fractures. IMPRESSION: 1. No acute intracranial abnormality. 2: Mild sinus disease. 3: Chronic age-related findings. Reviewed, dictated and finalized at location B.
[2021-06-30 12:19] LABS: Basophils Absolute Auto 0.1 K/mm3 (0.0-0.1); Basophils Percent Auto 1.2 % (0.2-1.2); Eosinophils Absolute Auto 0.4 K/mm3 (0-0.3); Eosinophils Percent Auto 7.8 % (0-4.4); Hematocrit 41.4 % (42.0-52.0); Hemoglobin 14.1 g/dL (14.0-18.0); Immature Granulocyte Absolute 0.01 K/mm3 (0.00-0.031); Immature Granulocyte Percent A 0.2 % (0-0.5); Lymphocytes Absolute Auto 0.86 K/mm3 (0.9-3.2); Lymphocytes Percent Auto 16.7 % (18.3-44.2); Mean Corpuscular HGB Conc 34.1 g/dl (32-36); Mean Corpuscular Hemoglobin 34.1 pg (26-34); Mean Platelet Volume 9.3 fl (7.4-10.4); Monocytes Absolute Auto 0.5 K/mm3 (0.1-0.6); Monocytes Percent Auto 8.7 % (2.6-8.5); Neutrophils Absolute Auto 3.4 K/mm3 (1.3-6.7); Neutrophils Percent Auto 65.4 % (45.5-73.1); Platelet Count Result 115 k/mm3 (150-375); Red Blood Count 4.14 M/mm3 (4.6-6.20); White Blood Count 5.2 K/mm3 (4.5-10.0)
[2021-06-30 12:33] LABS: Alanine Aminotransferase 22 U/L (4-50); Albumin Level 4.6 g/dL (3.5-5.1); Alkaline Phosphatase 57 U/L (38-126); Anion Gap 9 mmol/L (8-16); Aspartate Amino Transferase 27 U/L (17-59); Bilirubin,Total 0.8 mg/dL (0.2-1.3); Blood Urea Nitrogen 17 mg/dL (9-20); Calcium 9.9 mg/dL (8.4-10.2); Carbon Dioxide 27 mmol/L (22-30); Chloride 103 mmol/L (98-107); Estimated Glomerular Filt Rate 47; Glucose 172 mg/dL (65-110); Potassium 4.7 mmol/L (3.4-5.0); Sodium 139 mmol/L (137-145)
== END 2021-06-30 11:33 | disposition home or self-care (01) ==
PROVIDERS: PCP Internal Medicine; Visit Provider Nurse Practitioner
DX: R55 Syncope and collapse (principal); R53.82 Chronic fatigue, unspecified
CPT/HCPCS: 36415; 70450; 71046; 80053; 85025

== ENCOUNTER 2022-03-05 09:51 | Outpatient (CLI) | payer MEDICARE, SELFPAY ==
--- NOTE | ~2022-03-05 | US_ITS ---
EXAMINATION: US abdomen complete DATE: 03/05/2022 10:26 INDICATION: Secondary to osteopenia TECHNIQUE: Multiple grayscale and Doppler ultrasound images of the abdomen were obtained. COMPARISON: 05/27/2020 FINDINGS: Bowel gas obscures visualization of the pancreas. The visualized portions of the pancreas a re unremarkable. The liver is normal with normal echogenicity and echotexture. No surface nodularity. Normal hepatopetal flow in the main portal vein. There are multiple mobile stones in the gallbladder . There is no gallbladder wall thickening or pericholecystic fluid. The normal common bile duct measu res 4 mm. There was no sonographic Jackson sign. The visualized portions of the aorta and inferior jose r a cava are normal. The right kidney measures 11.9 x 5.8 x 5.6 cm. The left kidney measures 12.1 x 5.4 x 5.5 cm and conta ins a 2.5 cm cyst. The kidneys demonstrate normal parenchymal echogenicity. There is no hydronephrosi s. The spleen is normal in appearance and measures 13 cm. IMPRESSION: 1. No sonographic correlate for the patient's symptoms. 2. Cholelithiasis without additional findings to suggest cholecystitis. Reviewed, dictated and finalized at location F.
== END 2022-03-05 09:52 | disposition home or self-care (01) ==
PROVIDERS: PCP Internal Medicine; Visit Provider Internal Medicine Hematology & Oncology
DX: D69.59 Other secondary thrombocytopenia (principal); K80.20 Calculus of gallbladder without cholecystitis without obstruction
CPT/HCPCS: 76700

== ENCOUNTER 2022-03-12 09:57 | Outpatient (CLI) | payer MEDICARE, SELFPAY ==
[2022-03-12 10:27] LABS: Hematocrit 43.6 % (42.0-52.0); Hemoglobin 14.7 g/dL (14.0-18.0); Immature Platelet Fraction Pct 6.9 % (0.9-11.2); Mean Corpuscular HGB Conc 33.7 g/dl (32-36); Mean Corpuscular Hemoglobin 32.6 pg (26-34); Mean Corpuscular Volume 96.7 fl (80-100); Red Blood Count 4.51 M/mm3 (4.6-6.20); Red Cell Distribution Width 11.9 % (11.5-14.5); White Blood Count 7.4 K/mm3 (4.5-10.0)
[2022-03-12 10:37] LABS: Mean Platelet Volume 10.1 fl (7.4-10.4)
[2022-03-12 10:39] LABS: Platelet Count Result 76 k/mm3 (150-375)
== END 2022-03-12 09:58 | disposition home or self-care (01) ==
LOC: ANHLAB 09:59
PROVIDERS: PCP Internal Medicine; Visit Provider Internal Medicine Hematology & Oncology
DX: D69.59 Other secondary thrombocytopenia (principal)
CPT/HCPCS: 36415; 85027; 85055

== ENCOUNTER 2023-10-21 06:18 | Emergency (ER) | payer MEDICARE, SELFPAY ==
--- NOTE | ~2023-10-21 | XR_ITS ---
EXAMINATION: XR chest 1V portable INDICATION: Shortness of breath TECHNIQUE: Portable AP chest at 0809 hours COMPARISON: 06/30/2021 FINDINGS: There is mild asymmetric opacification of the right hemithorax compared to the left which c ould reflect pleural effusion. There is no pneumothorax. The lungs are free of acute opacities. The c ardiomediastinal silhouette is normal. IMPRESSION: 1. Possible right pleural effusion. Reviewed, dictated and finalized at location B. N CERAMIST
[2023-10-21 06:25] VITALS: BP 148/85; PULSE 89; RESP 18; TEMP 35.9; O2SAT 96
[2023-10-21 06:44] VITALS: O2SAT 99
[2023-10-21 06:50] LABS: Basophils Percent Auto 2.4 % (0.2-1.2); Eosinophils Absolute Auto 0.3 K/mm3 (0-0.3); Eosinophils Percent Auto 17.2 % (0-4.4); Hematocrit 43.2 % (42.0-52.0); Hemoglobin 14.4 g/dL (14.0-18.0); Immature Platelet Fraction Pct 5.6 % (0.9-11.2); Lymphocytes Absolute Auto 0.66 K/mm3 (0.9-3.2); Lymphocytes Percent Auto 39.1 % (18.3-44.2); Mean Corpuscular HGB Conc 33.3 g/dl (32-36); Mean Corpuscular Hemoglobin 31.6 pg (26-34); Mean Corpuscular Volume 94.9 fl (80-100); Mean Platelet Volume 11.1 fl (7.4-10.4); Monocytes Absolute Auto 0.6 K/mm3 (0.1-0.6); Monocytes Percent Auto 32.5 % (2.6-8.5); Neutrophils Absolute Auto 0.2 K/mm3 (1.3-6.7); Neutrophils Percent Auto 8.8 % (45.5-73.1); Platelet Count Result 146 k/mm3 (150-375); Red Blood Count 4.55 M/mm3 (4.6-6.20); Red Cell Distribution Width 12.4 % (11.5-14.5)
[2023-10-21 06:51] LABS: White Blood Count 1.7 K/mm3 (4.5-10.0)
[2023-10-21 06:59] LABS: INR 1.5; Prothrombin Time 18.9 Seconds (11.1-14.7)
[2023-10-21 07:05] LABS: Alanine Aminotransferase 13 U/L (6-50); Albumin Level 4.2 g/dL (3.5-5.1); Alkaline Phosphatase 75 U/L (38-126); Anion Gap 8 mmol/L (8-16); Aspartate Amino Transferase 23 U/L (17-59); Blood Urea Nitrogen 16 mg/dL (9-20); Calcium 9.9 mg/dL (8.4-10.2); Carbon Dioxide 25 mmol/L (22-30); Chloride 104 mmol/L (98-107); Estimated CRCL calculation 56 ml/min; Estimated Glomerular Filt Rate 54; Glucose 169 mg/dL (65-110); Potassium 4.3 mmol/L (3.4-5.0); Sodium 137 mmol/L (137-145)
[2023-10-21 07:17] VITALS: BP 124/89; PULSE 91; RESP 24; O2SAT 99
[2023-10-21 07:33] LABS: Schistocytes None Seen (NORMAL)
--- NOTE | 2023-10-21 07:37 | ED.GENADULT ---
HPI - General Adult General Chief complaint: Recheck/Abnormal Lab/Rx Stated complaint: low WBC Time Seen by Provider: 10/21/23 07:36 History of Present Illness HPI narrative: Patient is a 73-year-old male who presents to the emergency department this morning after his primary care physician sent him due to a low white blood cell. Patient states that he currently has no and is only tells his PCP told him to come here. Patient did inform me that something similar happened approximately 3 years ago and he saw a punch finisher/oncologist and was supposed to follow up with him as an outpatient but did not follow-up. At that time, his leukopenia was incidental as he was being treated for a wound infection in his hand. Patient admits that a few days ago he did scrape his hand while doing some house work and does have some abrasions that have scabbed over with mild surrounding the erythema along the dorsum of his left pant. states the patient does a lot of hand work and is always scraping and cutting his hands. Patient states that patient's white blood cell count did normalize and remained normal until recently. Patient denies any symptoms at this time including chest pain, shortness of breath, nausea, vomiting, abdominal pain, dysuria, hematuria, constipation, diarrhea, melena, hematochezia, fevers or chills. Patient also denies any headaches, dizziness, lightheadedness, blurry visions, focal weakness, numbness and or tingling. There are no other modifying, alleviating, or precipitating factors at this time. Related Data Allergies Allergy/AdvReac Type Severity Reaction Status Date / Time No Known Allergies Allergy Mild Verified 10/21/23 06:40 Review of Systems Review of Systems: All systems are reviewed and are negative unless stated otherwise in the HPI. [facility] Past Medical History Medical History Anxiety and depression Asbestosis Benign prostatic hyperplasia Chronic kidney disease, stage III (moderate) Chronic pain of both knees Colon polyps (~04/2018) Extrapyramidal and movement disorder, unspecified Extrapyramidal dysarthria Hyperlipidemia Knee pain, chronic Major depression, chronic Obesity Osteoarthritis Paroxysmal atrial fibrillation (~04/2018) Type 2 diabetes mellitus Surgical History Surgical History History of right knee joint replacement History of surgery on right wrist Family History Family History Mother Depression Father Heart disease Other Depression Other Diabetes mellitus Hypertension Social History Social History Social History: The patient is and lives in [place] with his . He is retired from [employer]. He has a 25 pack year smoking history and quit 1995. He denies alcohol and drug abuse. He designates his , Iris, as his surrogate decision maker and he wishes to be a full code Caffeine-daily Smoking packs per day: 1 Smoking cigarettes per day: 20.0 Years smoked: 25 Smoking pack-years: 25.00 Smoking status: Former smoker Alcohol intake: never Substance use: never Lack of Transportation: No Lack of Food: Never True Current Housing: I Have Housing Concerned About Future Housing: No Difficulty Paying Gas/Electric Bills: No Difficulty Paying for Meds: YES Currently Unemployed: No Education: High School Diploma/GED Difficulty w/ Childcare or Family Care: No Spiritual care concerns: No Exam Narrative: General: Alert, awake, afebrile, in no acute distress. HEENT: PERRL, no rhinorrhea, no post nasal drip, oropharynx clear. Neck: Trachea midline, no JVD, no lymphadenopathy. Cardiovascular: Regular rate and rhythm, no murmurs, rubs or gallops, no peripheral edema. Respiratory: Clear to auscultation
[2023-10-21 08:26] LABS: Influenza A QL RT-PCR Negative (Negative); Influenza B QL RT-PCR Negative (Negative); SARS-CoV-2 RNA PCR Negative (Negative)
[2023-10-21 08:46] VITALS: BP 100/67; PULSE 94; RESP 14; O2SAT 99
[2023-10-21 09:47] VITALS: BP 114/85; PULSE 93; RESP 12; O2SAT 99
== END 2023-10-21 09:48 | disposition home or self-care (01) ==
PROVIDERS: Emergency Medicine; Emergency Provider Emergency Medicine
DX: D72.819 Decreased white blood cell count, unspecified (principal); L03.114 Cellulitis of left upper limb; Z20.822 Contact with and (suspected) exposure to COVID-19; E11.22 Type 2 diabetes mellitus with diabetic chronic kidney disease; N18.30 Chronic kidney disease, stage 3 unspecified; I48.0 Paroxysmal atrial fibrillation; J61 Pneumoconiosis due to asbestos and other mineral fibers; E78.5 Hyperlipidemia, unspecified; E66.9 Obesity, unspecified; Z68.33 Body mass index [BMI] 33.0-33.9, adult; N40.0 Benign prostatic hyperplasia without lower urinary tract symptoms; Z96.651 Presence of right artificial knee joint; Z86.010 Personal history of colon polyps; Z87.891 Personal history of nicotine dependence; R91.8 Other nonspecific abnormal finding of lung field; Z79.01 Long term (current) use of anticoagulants
CPT/HCPCS: 36415; 71045; 80053; 85025; 85055; 85610; 85730; 87636; 99283

== ENCOUNTER 2023-11-03 11:01 | Outpatient (CLI) | payer MEDICARE, SELFPAY ==
[2023-11-03 11:23] LABS: Basophils Percent Auto 1.5 % (0.2-1.2); Eosinophils Absolute Auto 0.3 K/mm3 (0-0.3); Eosinophils Percent Auto 14.6 % (0-4.4); Hematocrit 42.5 % (42.0-52.0); Hemoglobin 14.5 g/dL (14.0-18.0); Lymphocytes Absolute Auto 0.57 K/mm3 (0.9-3.2); Lymphocytes Percent Auto 28.6 % (18.3-44.2); Mean Corpuscular HGB Conc 34.1 g/dl (32-36); Mean Corpuscular Hemoglobin 31.7 pg (26-34); Mean Platelet Volume 10.2 fl (7.4-10.4); Monocytes Absolute Auto 0.6 K/mm3 (0.1-0.6); Monocytes Percent Auto 28.1 % (2.6-8.5); Neutrophils Absolute Auto 0.5 K/mm3 (1.3-6.7); Neutrophils Percent Auto 27.2 % (45.5-73.1); Platelet Count Result 144 k/mm3 (150-375); Red Blood Count 4.57 M/mm3 (4.6-6.20); Red Cell Distribution Width 12.4 % (11.5-14.5)
== END 2023-11-03 11:02 | disposition home or self-care (01) ==
LOC: ANHLAB 11:03
PROVIDERS: Visit Provider Internal Medicine Hematology & Oncology
DX: D69.59 Other secondary thrombocytopenia (principal)
CPT/HCPCS: 36415; 85025

== ENCOUNTER 2023-12-15 09:50 | Outpatient (CLI) | payer MEDICARE, SELFPAY ==
--- NOTE | ~2023-12-15 | XR_ITS ---
[id number] DATE: 12/15/2023 10:10 INDICATION: Pleuritic right chest pain TECHNIQUE: PA chest. 3 views of the right ribs. COMPARISON: None FINDINGS: Normal heart size. No hilar or mediastinal enlargement. There is minimal aortic unfolding. No pulmonary infiltrate or consolidation, pleural effusion or pulmonary vascular congestion or pneumo thorax is detected. No right rib fracture or bone destruction is detected. IMPRESSION: No active cardiopulmonary disease No evidence of right rib fracture or bone destruction Reviewed, dictated and finalized at Location [facility]. Reviewed, dictated and finalized at location B.
== END 2023-12-15 09:51 ==
PROVIDERS: PCP Physician Assistant; Visit Provider Physician Assistant
DX: R07.81 Pleurodynia (principal)
CPT/HCPCS: 71101

== ENCOUNTER 2023-12-16 13:57 | Outpatient (CLI) | payer MEDICARE, SELFPAY ==
[2023-12-16 14:47] LABS: Mean Platelet Volume 11.4 fl (7.4-10.4); Platelet Count Result 106 k/mm3 (150-375)
== END 2023-12-16 13:58 | disposition home or self-care (01) ==
LOC: ANHLAB 13:59
PROVIDERS: PCP Physician Assistant; Visit Provider Physician Assistant
DX: D69.6 Thrombocytopenia, unspecified (principal)
CPT/HCPCS: 36415; 85049

== ENCOUNTER 2024-01-11 11:13 | Outpatient (CLI) | payer MEDICARE, SELFPAY ==
[2024-01-11 11:50] LABS: Immature Platelet Fraction Pct 4.4 % (0.9-11.2); Mean Platelet Volume 10.7 fl (7.4-10.4); Platelet Count Result 127 k/mm3 (150-375)
== END 2024-01-11 11:14 | disposition home or self-care (01) ==
LOC: ANHLAB 11:16
PROVIDERS: PCP Physician Assistant; Visit Provider Physician Assistant
DX: D69.6 Thrombocytopenia, unspecified (principal)
CPT/HCPCS: 36415; 85049; 85055

== ENCOUNTER 2024-01-31 08:40 | Outpatient (CLI) | payer MEDICARE, SELFPAY ==
--- NOTE | ~2024-01-31 | CT_ITS ---
EXAMINATION: CTA chest DATE: 01/31/2024 09:09 INDICATION: Aneurysm of ascending aorta without rupture. TECHNIQUE: Computed tomographic angiography (CTA) of the chest was performed with 100 mL Omnipaque-35 0 intravenous contrast. Automated exposure control and iterative reconstruction technique were employ ed. The dose-length product was 877.90 mGy-cm. Maximum intensity projection 3D-reconstructions of the aorta and other arteries were constructed by the technologist on a separate workstation. COMPARISON: None. FINDINGS: There is mild emphysema. A calcified right lung nodule is consistent with old granulomatous disease. There is mild atelectasis bilaterally. No pleural effusion. Cardiomegaly is noted. There is a trace pericardial effusion. The aorta measures 4.6 cm at the sinuses of Valsalva, 3.5 cm at the si notubular junction, 3.6 cm in the mid ascending aorta, 3.0 cm at the aortic isthmus, and 3.5 cm in th e mid descending aorta. Aortic atherosclerosis is noted. There is no pulmonary embolus. There are gal lstones in the gallbladder, which is normal in size. There is mild thoracic spondylosis. IMPRESSION: 1. Aortic ectasia measuring 4.6 cm at the sinuses of Valsalva. Reviewed, dictated and finalized at location A.
[2024-01-31 09:03] LABS: Estimated Glomerular Filt Rate 43
== END 2024-01-31 08:41 | disposition home or self-care (01) ==
PROVIDERS: PCP Physician Assistant; Visit Provider Internal Medicine Cardiovascular Disease
DX: I71.21 Aneurysm of the ascending aorta, without rupture (principal)
CPT/HCPCS: 71275; Q9967

== ENCOUNTER 2024-08-07 09:14 | Outpatient (CLI) | payer MEDICARE, SELFPAY ==
[2024-08-07 10:06] LABS: Eosinophils Absolute Auto 0.3 K/mm3 (0-0.3); Eosinophils Percent Auto 17.1 % (0-4.4); Hematocrit 43.1 % (42.0-52.0); Hemoglobin 14.6 g/dL (14.0-18.0); Immature Granulocyte Absolute 0.01 K/mm3 (0.00-0.031); Immature Granulocyte Percent A 0.7 % (0-0.5); Immature Platelet Fraction Pct 7.1 % (0.9-11.2); Lymphocytes Absolute Auto 0.48 K/mm3 (0.9-3.2); Lymphocytes Percent Auto 31.6 % (18.3-44.2); Mean Corpuscular HGB Conc 33.9 g/dl (32-36); Mean Corpuscular Hemoglobin 31.4 pg (26-34); Mean Corpuscular Volume 92.7 fl (80-100); Mean Platelet Volume 11.5 fl (7.4-10.4); Monocytes Absolute Auto 0.4 K/mm3 (0.1-0.6); Neutrophils Absolute Auto 0.4 K/mm3 (1.3-6.7); Neutrophils Percent Auto 23.6 % (45.5-73.1); Platelet Count Result 98 k/mm3 (150-375); Red Blood Count 4.65 M/mm3 (4.6-6.20); Red Cell Distribution Width 12.5 % (11.5-14.5)
[2024-08-07 10:26] LABS: Alanine Aminotransferase 16 U/L (6-50); Albumin Level 4.1 g/dL (3.5-5.1); Alkaline Phosphatase 70 U/L (38-126); Anion Gap 6 mmol/L (4-12); Aspartate Amino Transferase 26 U/L (17-59); Bilirubin,Total 0.8 mg/dL (0.2-1.3); Blood Urea Nitrogen 13 mg/dL (9-20); Calcium 9.4 mg/dL (8.4-10.2); Carbon Dioxide 28 mmol/L (22-30); Chloride 98 mmol/L (98-107); Cholesterol 226 mg/dL (0-200); Estimated Glomerular Filt Rate 54; Glucose 393 mg/dL (65-110); HDL Direct 35 mg/dL; Potassium 3.8 mmol/L (3.4-5.0); Sodium 132 mmol/L (137-145); Triglycerides 233 mg/dL (<150)
[2024-08-07 10:37] LABS: White Blood Count 1.5 K/mm3 (4.5-10.0)
[2024-08-07 10:38] LABS: LDL Cholesterol Direct 121 mg/dL
[2024-08-07 10:43] LABS: Atypical Lymphocytes Present; Platelet Estimate Decreased (Adequate); Schistocytes None Seen
[2024-08-07 11:08] LABS: Creatinine Urine 116.5 mg/dL
[2024-08-07 11:12] LABS: Microalbumin Urine Random 19.8 mg/L (0-16.7)
[2024-08-07 12:40] LABS: Hemoglobin A1C 9.8 % (<5.7)
== END 2024-08-07 09:15 | disposition home or self-care (01) ==
PROVIDERS: PCP Physician Assistant; Visit Provider Physician Assistant
DX: D70.9 Neutropenia, unspecified (principal); E11.9 Type 2 diabetes mellitus without complications
CPT/HCPCS: 36415; 80053; 80061; 82043; 83036; 85025; 85055

== ENCOUNTER 2024-08-28 09:21 | Outpatient (CLI) | payer MEDICARE, SELFPAY ==
[2024-08-28 10:00] LABS: Basophils Absolute Auto 0.1 K/mm3 (0.0-0.1); Basophils Percent Auto 1.8 % (0.2-1.2); Eosinophils Absolute Auto 0.5 K/mm3 (0-0.3); Eosinophils Percent Auto 16.6 % (0-4.4); Hematocrit 43.4 % (42.0-52.0); Lymphocytes Absolute Auto 0.74 K/mm3 (0.9-3.2); Lymphocytes Percent Auto 26.7 % (18.3-44.2); Mean Corpuscular HGB Conc 34.6 g/dl (32-36); Mean Corpuscular Hemoglobin 31.7 pg (26-34); Mean Corpuscular Volume 91.8 fl (80-100); Mean Platelet Volume 10.7 fl (7.4-10.4); Monocytes Absolute Auto 0.5 K/mm3 (0.1-0.6); Monocytes Percent Auto 18.8 % (2.6-8.5); Neutrophils Percent Auto 36.1 % (45.5-73.1); Platelet Count Result 118 k/mm3 (150-375); Red Blood Count 4.73 M/mm3 (4.6-6.20); Red Cell Distribution Width 12.3 % (11.5-14.5); White Blood Count 2.8 K/mm3 (4.5-10.0)
[2024-08-28 10:30] LABS: Anisocytosis 1+; Platelet Estimate Decreased (Adequate); Schistocytes None Seen
== END 2024-08-28 09:22 | disposition home or self-care (01) ==
PROVIDERS: PCP Physician Assistant; Visit Provider Physician Assistant
DX: D69.6 Thrombocytopenia, unspecified (principal)
CPT/HCPCS: 36415; 85025

== ENCOUNTER 2024-10-03 16:17 | Outpatient (CLI) | payer MEDICARE, SELFPAY ==
--- NOTE | ~2024-10-03 | XR_ITS ---
EXAMINATION: XR chest 2V DATE: 10/03/2024 16:24 INDICATION: Cough, unspecified. TECHNIQUE: Frontal and lateral views of the chest were obtained. COMPARISON: Chest single view 10/21/2023, chest CT 01/31/2024 FINDINGS: There is no pneumonia, pleural effusion, or pneumothorax. The heart size is normal. IMPRESSION: 1. No acute cardiopulmonary disease. Reviewed, dictated and finalized at location B. COATER
== END 2024-10-03 16:18 | disposition home or self-care (01) ==
LOC: MICIMG 16:18
PROVIDERS: PCP Physician Assistant; Visit Provider Physician Assistant
DX: R05.9 Cough, unspecified (principal)
CPT/HCPCS: 71046

== ENCOUNTER 2024-10-03 16:32 | Outpatient (CLI) | payer MEDICARE, SELFPAY ==
[2024-10-03 16:48] LABS: Basophils Absolute Auto 0.1 K/mm3 (0.0-0.1); Basophils Percent Auto 1.6 % (0.2-1.2); Eosinophils Absolute Auto 0.4 K/mm3 (0-0.3); Eosinophils Percent Auto 13.8 % (0-4.4); Hemoglobin 13.5 g/dL (14.0-18.0); Immature Granulocyte Absolute 0.01 K/mm3 (0.00-0.031); Immature Granulocyte Percent A 0.3 % (0-0.5); Lymphocytes Absolute Auto 0.85 K/mm3 (0.9-3.2); Lymphocytes Percent Auto 27.9 % (18.3-44.2); Mean Corpuscular HGB Conc 34.6 g/dl (32-36); Mean Corpuscular Hemoglobin 31.6 pg (26-34); Mean Corpuscular Volume 91.3 fl (80-100); Mean Platelet Volume 9.1 fl (7.4-10.4); Monocytes Absolute Auto 0.5 K/mm3 (0.1-0.6); Monocytes Percent Auto 16.1 % (2.6-8.5); Neutrophils Absolute Auto 1.2 K/mm3 (1.3-6.7); Neutrophils Percent Auto 40.3 % (45.5-73.1); Red Blood Count 4.27 M/mm3 (4.6-6.20); Red Cell Distribution Width 12.5 % (11.5-14.5); White Blood Count 3.1 K/mm3 (4.5-10.0)
[2024-10-03 18:12] LABS: Platelet Count Result 190 k/mm3 (150-375)
--- OUTSIDE RECORDS SUMMARY | 2024-10-05 03:19 | XMS_ITS | Encounter Summary ---
Author Organization [facility] Address [address] [place] [address] Care Team Providers Care Clock Repairer Name Role Phone Librado Cross MD Primary Care Provider [phone] Encounter Details Date Type Department Care Team (Late st Contact Info) Description 10/02/2024 External Device Data [facility] ABSTRACTION Provider, Abstract NO ADDRESS ON FILE Social History Tobacco Use Types Packs/Day Years Used Date Smoking Tobacco: Never Smokeless Tobacco: Never Alcohol Use Standard Drinks/Week Comments Not Currently 0 (1 standard drink = 0.6 oz pur e alcohol) Sex and Gender Information Value Date Recorded Sex Assigned at Not on file Legal Sex Male 11:01 AM CDT Gender Identity Not on file Sexual Orientation Not on file documented as of this encounter Plan of Treatment Not on file documented as of this encounter Visit Diagnoses Not on filedocumented in this encounter Care Teams Clock Repairer Relationship Specialty Start Date End Date Librado Cross MD [address] [place] [address] PCP - General Family Practice 11/03/23 documented as of this encounter
--- OUTSIDE RECORDS SUMMARY | 2024-10-05 03:19 | XMS_ITS | Clinical Summary ---
Author Organization [facility] Address [address] [place] [address] Care Team Providers Care Fire Engineer Name Role Phone Librado Cross MD Primary Care Provider +1- [phone] Allergies No known active allergies Medications traZODone (DESYREL) 100 mg tablet trazodone 100 mg tablet Active tamsulosin (FLOMAX) 0.4 mg capsule tamsulosin 0.4 mg capsule Active rivaroxaban (XARELTO) 20 mg Tablet Xarelto 20 mg tablet TAKE 1 TABLET BY MOUTH ONCE DAILY WITH EVENING MEAL Active PARoxetine HCl (PAXIL) 20 mg tablet TAKE 1 TABLET BY MOUTH ONCE DAILY 0 Active metFORMIN (GLUCOPHAGE XR) 500 mg Extended Release 24 hour tablet TAKE 1 TABLET BY MOUTH ONCE DAILY 0 Active atorvastatin (LIPITOR) 20 mg tablet atorvastatin 20 mg tablet Active diphenhydrAMINE -acetaminophen (TYLENOL PM) 25-500 mg Tablet every 24 hours. 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 Leukopenia 02/20/2020 Vitamin B12 deficiency (non anemic) 02/20/2020 Encounters Date Type Department Care Team Description 10/04/2024 External Device Data ST[facility] ABSTRACTION Provider, Abstract 10/03/2024 External Device Data ST[facility] ABSTRACTION Provider, Abstract 10/02/2024 External Device Data [facility] ABSTRACTION Provider, Abstract 09/25/2024 External Device Data [facility] ABSTRACTION Provider, Abstract from Last 3 Months Family History Medical History Relation Name Comments Cancer Son 2 Relation Name Status Comments Brother 1 Brother 2 Father Mother Sister 1 Alive Sister 2 Alive Son 1 Alive Son 2 Social History Tobacco Use Types Packs/Day Years Used Date Smoking Tobacco: Never Smokeless Tobacco: Never Alcohol Use Standard Drinks/Week Comments Not Currently 0 (1 standard drink = 0.6 oz pur e alcohol) Sex and Gender Information Value Date Recorded Sex Assigned at Not on file Legal Sex Male 11:01 AM CDT Gender Identity Not on file Sexual Orientation Not on file Last Filed Vital Signs Vital Sign Reading Time Taken Comments Blood Pressure 122/84 11/03/2023 10:39 AM UPHOLSTERY TECH Pulse 90 11/03/2023 10:39 AM UPHOLSTERY TECH Temperature 35.8 ??C (96.4 ??F) 11/03/2023 10:[address] Respiratory Rate 14 11/03/2023 10:39 AM UPHOLSTERY TECH Oxygen Saturation 97% 11/03/2023 10:39 AM UPHOLSTERY TECH Inhaled Oxygen Concentration - - Weight 102.5 kg (226 lb) 11/03/2023 10:39 AM UPHOLSTERY TECH Height 182.9 cm (6') 03/12/2022 9:31 AM CDT Body Mass Index 30.65 03/12/2022 9:31 AM CDT Plan of Treatment Health Maintenance Due Date Last Done Comments DTAP/TDAP/TD VACCINES (1 - Tdap) 1971 COLORECTAL SCREENING 1997 Colorectal Cancer Screening 1997 FIT-DNA Q 3 years 1997 FIT/FOBT Q 1 year 1997 Flex Sig/CT Colonography Q 5 years 1997 PNEUMOCOCCAL VACCINE 65+ YEARS (1 of 1 - PCV) 07/05/20 02 ZOSTER VACCINE (1 of 2) 2002 INFLUENZA VACCINE (#1) 2024 RSV VACCINE (60+ or ) (1 - 1-dose 75+ series) 2027 Insurance [place] [id number] Care Teams Fire Engineer Relationship Specialty Start Date End Date Librado Cross MD [address] [place] [address] PCP - General Family Practice 11/03/23
--- OUTSIDE RECORDS SUMMARY | 2024-10-05 03:19 | XMS_ITS | Referral Summary ---
Author Organization [facility] [place] Address [address] [place] [address] Care Team Providers Care Vegetable Harvest Machine Operator Name Role Phone Barrera Tamayo DO Primary Care Provider +1- [phone] Allergies No known active allergies Medications Xarelto 20 mg tablet TAKE 1 TABLET BY MOUTH ONCE DAILY WITH EVENING MEAL 0 Active tamsulosin (FLOMAX) 0.4 mg extended release capsule tamsulosin 0.4 mg capsule Active atorvastatin (LIPITOR) 20 mg tablet Take 20 mg by mouth daily 0 Active traZODone (DESYREL) 100 mg tablet TAKE 3 TABLETS BY MOUTH ONCE DAILY 0 Active PARoxetine (PAXIL) 20 mg tablet TAKE 1 TABLET BY MOUTH ONCE DAILY 0 Active Active Problems No known active problems Social History Tobacco Use Types Packs/Day Years Used Date Smoking Tobacco: Former Cigarettes Q uit: 1998 Smokeless Tobacco: Never Alcohol Use Standard Drinks/Week Comments Never 0 (1 standard drink = 0.6 oz pur e alcohol) AUDIT-C Answer Date Recorded Q1: How often do you have a drink containing alc ohol? 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 Gender Identity Not on file Sexual Orientation Not on file Last Filed Vital Signs Vital Sign Reading Time Taken Comments Blood Pressure 105/71 04/14/2020 5:35 PM CDT Pulse 91 04/14/2020 5:35 PM CDT Temperature 36.1 ??C (96.9 ??F) 05/13/2020 1:41 PM CD T Respiratory Rate - - Oxygen Saturation - - Inhaled Oxygen Concentration - - Weight 104.3 kg (230 lb) 05/09/2020 9:51 AM CDT Height 182.9 cm (6') 05/09/2020 9:51 AM CDT Body Mass Index 31.19 05/09/2020 9:51 AM CDT Plan of Treatment Not on file Medical Devices Implanted Type Area Pediatric Speech Language Pathologist Device Identifier Shelf Expiration Date Model / Serial / Lot Total Knee Replacement Right: Knee Insurance [employer] CLAIMS OFFICE [employer] CHOICE MEDICARE PPO Care Teams Vegetable Harvest Machine Operator Relationship Specialty Start Date End Date Barrera Tamayo DO PCP - General Internal Medicine 03/11/20
--- OUTSIDE RECORDS SUMMARY | 2024-10-05 03:19 | XMS_ITS | Clinical Summary ---
Author Organization [facility] in [place] Address [address] [place] [address] Care Team Providers Care Order Entry Clerk Name Role Phone Barrera Tamayo DO Primary Care Provider +1- [phone] Allergies No known active allergies Medications Xarelto [...] Active Active Problems No known active problems Surgical History Surgery Date Site/Laterality Comments JOINT REPLACEMENT 10/12/2019 Medical History Medical History Date Comments Arrhythmia Erectile dysfunction Anxiety Depression Family History Medical History Relation Name Comments Cancer Child Relation Name Status Comments Child Social History Tobacco Use Types Packs/Day Years [...] on file 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
== END 2024-10-03 16:33 | disposition home or self-care (01) ==
LOC: ANHLAB 16:34
PROVIDERS: PCP Physician Assistant; Visit Provider Physician Assistant
DX: D69.6 Thrombocytopenia, unspecified (principal)
CPT/HCPCS: 36415; 85025

== ENCOUNTER 2024-11-12 08:53 | Outpatient (CLI) | payer MEDICARE, SELFPAY | END 2024-11-12 08:54 | disposition home or self-care (01) | PROVIDERS: PCP Physician Assistant; Visit Provider Internal Medicine Cardiovascular Disease | DX: I48.11 Longstanding persistent atrial fibrillation (principal); I08.3 Combined rheumatic disorders of mitral, aortic and tricuspid valves | CPT/HCPCS: 93306 ==

== ENCOUNTER 2025-01-22 11:04 | Outpatient (CLI) | payer MEDICARE, SELFPAY ==
[2025-01-22 11:19] LABS: Basophils Absolute Auto 0.1 K/mm3 (0.0-0.1); Basophils Percent Auto 0.8 % (0.2-1.2); Eosinophils Absolute Auto 0.8 K/mm3 (0-0.3); Eosinophils Percent Auto 13.3 % (0-4.4); Hematocrit 44.9 % (42.0-52.0); Hemoglobin 15.3 g/dL (14.0-18.0); Immature Granulocyte Absolute 0.01 K/mm3 (0.00-0.031); Immature Granulocyte Percent A 0.2 % (0-0.5); Lymphocytes Absolute Auto 0.97 K/mm3 (0.9-3.2); Lymphocytes Percent Auto 15.3 % (18.3-44.2); Mean Corpuscular HGB Conc 34.1 g/dl (32-36); Mean Corpuscular Volume 93.9 fl (80-100); Mean Platelet Volume 9.3 fl (7.4-10.4); Monocytes Absolute Auto 0.6 K/mm3 (0.1-0.6); Monocytes Percent Auto 9.3 % (2.6-8.5); Neutrophils Absolute Auto 3.9 K/mm3 (1.3-6.7); Neutrophils Percent Auto 61.1 % (45.5-73.1); Platelet Count Result 167 k/mm3 (150-375); Red Blood Count 4.78 M/mm3 (4.6-6.20); Red Cell Distribution Width 11.9 % (11.5-14.5); White Blood Count 6.3 K/mm3 (4.5-10.0)
[2025-01-22 11:25] LABS: Blood Urea Nitrogen 11 mg/dL (8-26); Carbon Dioxide 25 mmol/L (22-30); Chloride 102 mmol/L (98-109); Estimated Glomerular Filt Rate 50; Glucose 211 mg/dL (70-105); Ionized Calcium (POC) 1.21 mmol/L (1.11-1.31); Potassium 3.9 mmol/L (3.5-4.9); Sodium 141 mmol/L (138-146)
--- OUTSIDE RECORDS SUMMARY | 2025-01-22 11:27 | XMS_ITS | Referral Summary ---
Author Organization [facility] in [place] Address [address] 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 Gender Identity Not on file Sexual Orientation Not on file Last Filed Vital Signs Vital Sign Reading Time Taken Comments Blood Pressure 105/71 04/14/2020 5:35 PM CDT Pulse 91 04/14/2020 5:35 PM CDT Temperature 36.1 C (96.9 F) 05/13/2020 1:41 PM CDT Respiratory Rate - - Oxygen Saturation - - Inhaled Oxygen Concentration - - Weight 104.3 kg (230 lb) 05/09/2020 9:51 AM CDT Height 182.9 cm (6') 05/09/2020 9:51 AM CDT Body Mass Index 31.19 05/09/2020 9:51 AM CDT Plan of Treatment Not on file Medical Devices Implanted Type Area Feed In Worker Device Identifier Shelf Expiration Date Model / Serial / Lot Total Knee Replacement Right: Knee Insurance [employer] CLAIMS OFFICE [employer] CHOICE MEDICARE PPO Care Teams Children'S Lunchroom Supervisor Relationship Specialty Start Date End Date Barrera Tamayo DO PCP - General Internal Medicine 03/11/20
--- OUTSIDE RECORDS SUMMARY | 2025-01-22 11:27 | XMS_ITS | Clinical Summary ---
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
--- OUTSIDE RECORDS SUMMARY | 2025-01-22 11:27 | XMS_ITS | Clinical Summary ---
Author Organization [facility] Address [address] [place] [address] Care Team Providers Care Sprinkler Fitter Apprentice Name Role Phone Librado Cross MD Primary Care Provider +1- [phone] Allergies No known active allergies Medications traZODone [...] Encounters Date Type Department Care Team Description 11/28/2024 External Device Data ST[facility] ABSTRACTION Provider, Abstract 11/19/2024 External Device Data [facility] ABSTRACTION Provider, Abstract 11/06/2024 External Device Data [facility] ABSTRACTION Provider, Abstract [...] Comments Blood Pressure 122/84 11/03/2023 10:39 AM MATERIALS TECHNICIAN Pulse 90 11/03/2023 10:39 AM MATERIALS TECHNICIAN Temperature 35.8 C (96.4 F) 11/03/2023 10:39 AM MATERIALS TECHNICIAN Respiratory Rate 14 11/03/2023 10:39 AM MATERIALS TECHNICIAN Oxygen Saturation 97% 11/03/2023 10:39 AM MATERIALS TECHNICIAN Inhaled Oxygen Concentration - - Weight 102.5 kg (226 lb) 11/03/2023 10:39 AM MATERIALS TECHNICIAN Height 182.9 cm (6') 03/12/2022 9:31 AM CDT Body Mass Index 30.65 03/12/2022 9:31 AM CDT Plan of Treatment Upcoming Encounters Date Type Department Care Team (Late st Contact Info) Description 01/22/2025 11:45 AM CDT Office Visit [facility] Oncology and Hematology - [place] [address] [facility] [[email or web address] [address] [place] [address] Frantz Perdomo MD [address] [place] [address] Arrived Health Maintenance Due Date Last Done Comments DTAP/TDAP/TD VACCINES (1 - Tdap) 1971 COLORECTAL SCREENING 1997 Colorectal Cancer Screening 1997 FIT-DNA Q 3 years 1997 FIT/FOBT Q 1 year 1997 Flex Sig/CT Colonography Q 5 years 1997 PNEUMOCOCCAL VACCINE 50+ YEARS (1 of 1 - PCV) 07/05/20 02 ZOSTER VACCINE (1 of 2) 2002 INFLUENZA VACCINE (#1) 2024 RSV VACCINE (60+ or ) (1 - 1-dose 75+ series) [address] [facility] [id number] Care Teams Sprinkler Fitter Apprentice Relationship Specialty Start Date End Date Librado Cross MD [address] [place] [id number] PCP - General Family Practice 11/03/23
[2025-01-22 12:21] LABS: Alanine Aminotransferase 15 U/L (6-50); Albumin Level 4.4 g/dL (3.5-5.1); Alkaline Phosphatase 59 U/L (38-126); Anion Gap 11 mmol/L (4-12); Aspartate Amino Transferase 22 U/L (17-59); Bilirubin,Total 0.5 mg/dL (0.2-1.3); Blood Urea Nitrogen 12 mg/dL (9-20); Calcium 9.6 mg/dL (8.4-10.2); Carbon Dioxide 25 mmol/L (22-30); Chloride 104 mmol/L (98-107); Estimated Glomerular Filt Rate 58; Glucose 208 mg/dL (65-110); Potassium 3.9 mmol/L (3.4-5.0); Sodium 140 mmol/L (137-145)
== END 2025-01-22 11:05 | disposition home or self-care (01) ==
PROVIDERS: PCP Physician Assistant; Visit Provider Internal Medicine Hematology & Oncology
DX: D69.59 Other secondary thrombocytopenia (principal)
CPT/HCPCS: 36415; 80047; 80053; 85025

== ENCOUNTER 2025-05-02 08:59 | Outpatient (CLI) | payer MEDICARE, SELFPAY ==
--- OUTSIDE RECORDS SUMMARY | 2025-05-02 09:20 | XMS_ITS | Clinical Summary ---
Author Organization [facility] in [place] Address [address] [place] [address] Care Team Providers Care Sr. 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 Manager Relationship Specialty Start Date End Date Barrera Tamayo DO PCP - General Internal Medicine 03/11/20
--- OUTSIDE RECORDS SUMMARY | 2025-05-02 09:20 | XMS_ITS | Clinical Summary ---
Author Organization [facility] Address [address] [place] [place] [address] Care Team Providers Care Plywood Matcher Name Role Phone Librado Cross MD Primary Care Provider +1- [phone] Allergies No known active allergies Medications traZODone [...] Encounters Date Type Department Care Team Description 01/31/2025 External Device Data STL ABSTRACTION Provider, Abstract 01/31/2025 External Device Data ST[facility] ABSTRACTION Provider, Abstract 01/31/2025 External Device Data [facility] ABSTRACTION Provider, Abstract 01/30/2025 External Device Data STL ABSTRACTION Provider, Abstract from Last 3 Months Family History Medical History Relation Name Comments Cancer Son 2 Relation Name Status Comments Brother 1 Brother 2 Father Mother Sister 1 Alive Sister 2 Alive Son 1 Alive Son 2 Social History Tobacco Use Types Packs/Day Years Used Date Smoking Tobacco: Never Smokeless Tobacco: Never Tobacco Cessation:Counseling Given: Not Answered Alcohol Use Standard Drinks/Week Comments Not Currently 0 (1 standard drink = 0.6 oz pur e alcohol) Sex and Gender Information Value Date Recorded Sex Assigned at Not on file Legal Sex Male 11:01 AM CDT Gender Identity Not on file Sexual Orientation Not on file Last Filed Vital Signs Vital Sign Reading Time Taken Comments Blood Pressure 110/77 01/22/2025 11:48 AM CDT Pulse 72 01/22/2025 11:48 AM CDT Temperature 36.4 C (97.6 F) 01/22/2025 11:48 AM CDT Respiratory Rate 15 01/22/2025 11:48 AM CDT Oxygen Saturation 97% 01/22/2025 11:48 AM CDT Inhaled Oxygen Concentration - - Weight 99.8 kg (220 lb) 01/22/2025 11:48 AM CDT Height 182.9 cm (6') 03/12/2022 9:31 AM CDT Body Mass Index 29.84 03/12/2022 9:31 AM CDT Plan of Treatment Upcoming Encounters Date Type Department Care Team (Late st Contact Info) Description 01/22/2026 11:30 AM CDT Office Visit [facility] Oncology and Hematology - [place] [address] [facility] [address] [place] [address] Frantz Perdomo MD [address] [place] [address] Health Maintenance Due Date Last Done Comments DTAP/TDAP/TD VACCINES (1 - Tdap) 1971 COLORECTAL SCREENING 1997 Colorectal Cancer Screening 1997 FIT-DNA Q 3 years 1997 FIT/FOBT Q 1 year 1997 Flex Sig/CT Colonography Q 5 years 1997 PNEUMOCOCCAL VACCINE 50+ YEARS (1 of 1 - PCV) 07/05/20 02 ZOSTER VACCINE (1 of 2) 2002 INFLUENZA VACCINE (#1) 2025 RSV VACCINE (60+ or ) (1 - 1-dose 75+ series) 2027 Insurance [facility] [id number] [place] [id number] Care Teams Plywood Matcher Relationship Specialty Start Date End Date Librado Cross MD [address] [place] [id number] PCP - General Family Practice 11/03/23
[2025-05-02 10:08] LABS: Cholesterol 179 mg/dL (0-200); HDL Direct 34 mg/dL; Triglycerides 130 mg/dL (<150)
== END 2025-05-02 09:00 | disposition home or self-care (01) ==
LOC: ANHLAB 09:00
PROVIDERS: PCP Physician Assistant; Visit Provider Internal Medicine Cardiovascular Disease
DX: E11.69 Type 2 diabetes mellitus with other specified complication (principal); E78.5 Hyperlipidemia, unspecified
CPT/HCPCS: 36415; 80061

== ENCOUNTER 2025-05-23 07:17 | Outpatient (CLI) | payer MEDICARE, SELFPAY ==
--- NOTE | ~2025-05-23 | CT_ITS ---
EXAMINATION: CTA chest DATE: 05/23/2025 07:50 INDICATION: Aneurysm of ascending aorta. TECHNIQUE: Computed tomographic angiography (CTA) of the chest was performed with 100 mL Omnipaque-350 intravenous contrast. Automated exposure control and iterative reconstruction technique were employed. The dose-length product was 691.69 mGy-cm. Maximum intensity projection 3D-reconstructions of the aorta and other arteries were constructed by the technologist on a separate workstation. COMPARISON: CTA 01/31/2024 FINDINGS: There is mild emphysema. There is mild atelectasis bilaterally. No pleural effusion. Cardiomegaly is noted. There is a trace pericardial effusion. There are gallstones in the gallbladder. Gallbladder distention may be secondary to fasting. Aortic atherosclerosis is noted. The aorta measures 4.3 cm at the sinuses of Valsalva, 3.4 cm at the sinotubular junction, 3.5 cm in the mid ascending aorta, 3.1 cm at the aortic isthmus, and 3.4 cm in the mid descending aorta. There is mild thoracic spondylosis. IMPRESSION: 1. Stable aortic ectasia measuring 4.3 cm at the sinuses of Valsalva. 2. Mild emphysema. Reviewed, dictated and finalized at location E.
[2025-05-23 07:40] LABS: Estimated Glomerular Filt Rate 46
== END 2025-05-23 07:18 | disposition home or self-care (01) ==
PROVIDERS: PCP Physician Assistant; Visit Provider Internal Medicine Cardiovascular Disease
DX: I71.21 Aneurysm of the ascending aorta, without rupture (principal); J43.9 Emphysema, unspecified
CPT/HCPCS: 71275; Q9967